=== PATIENT | male | born 1995 | race Caucasian/White ===

== ENCOUNTER 2017-10-07 20:49 | Emergency (ER) | payer MEDICAID ==
[~2017-10-07] VITALS: Ht 180.3 cm; Wt 117.9 kg
[2017-10-07 20:50] VITALS: BP_SYST 144
[2017-10-07] MEDS ORDERED: LORazepam 1 MG TABLET PO ONE (21:15)
[2017-10-07 22:55] VITALS: BP_SYST 136
== END 2017-10-07 22:55 | disposition home or self-care (01) ==
LOC: SED 20:49
DX: F41.9 Anxiety disorder, unspecified (principal)
CPT/HCPCS: 99283

== ENCOUNTER 2017-11-17 22:36 | Emergency (ER) | payer MEDICAID ==
[~2017-11-17] VITALS: Ht 185.4 cm; Wt 117.9 kg
[2017-11-17 22:36] VITALS: BP_SYST 164
[2017-11-18 00:25] VITALS: BP_SYST 156
== END 2017-11-18 00:25 | disposition home or self-care (01) ==
LOC: SED 22:36
DX: R07.89 Other chest pain (principal); R03.0 Elevated blood-pressure reading, without diagnosis of hypertension; F41.9 Anxiety disorder, unspecified
CPT/HCPCS: 71045; 93005; 99284

== ENCOUNTER 2022-03-05 21:46 | Emergency (ER) | payer MEDICAID ==
[~2022-03-05] VITALS: Ht 185.4 cm; Wt 126.1 kg
--- NOTE | 2022-03-05 22:58 | NUR ---
PATIENT TO ER BED 6 FOR EVALUATION.
--- NOTE | 2022-03-05 23:00 | NUR ---
MUSTAPHA FITZGERALD KWAW AT BEDSIDE EXAMINING PATIENT.
--- NOTE | 2022-03-05 23:00 | NUR ---
26 YR OLD AOX4 AMBULATORY MALE WITH COMPLAINT OF ARM NUMBNESS WITH TINGLING FOR A WEEK. PT REPORTS HAVING HX OF CHILDHOOD CA, WITH CARDIAC PROBLEMS. PT REPORTS FEELING HIS HANDS "GO TO SLEEP" REPEATEDLY. MD DASILVA AT THE BEDSIDE
[2022-03-05 23:13] VITALS: BP_SYST 157
[2022-03-06 00:19] LABS: BARBITURATE, URINE NEGATIVE (NEG <=200); BENZODIAZEPINE, URINE NEGATIVE (NEG <=150); CANNABINOID, URINE NEGATIVE (NEG <=50); COCAINE, URINE NEGATIVE (NEG <=150); METHAMPHETAMINES SCREEN,URINE NEGATIVE (NEG <=500); OPIATE, URINE NEGATIVE (NEG <=100); PHENCYCLIDINE SCREEN,URINE NEGATIVE (NEG <=25); UR TRICYCLIC ANTIDEPRESSANTS NEGATIVE (NEG <=300); URINE AMPHETAMINE NEGATIVE (NEG <=500); URINE METHADONE NEGATIVE (NEG <=200); URINE OXYCODONE SCREEN NEGATIVE (NEG <=100); URINE PROPOXYPHENE SCREEN NEGATIVE (NEG <=300)
--- NOTE | 2022-03-06 00:30 | NUR ---
PATIENT RESTING IN BED. NO SIGNS OF ACUTE DISTRESS NOTED AT THIS TIME. WILL CONTINUE TO MONITOR.
[2022-03-06 01:32] LABS: BASOPHILS # (AUTO) 0.1 K/uL (0.0-0.2); BASOPHILS % (AUTO) 0.8 % (0.0-2.0); EOSINOPHILS # (AUTO) 0.1 K/uL (0.0-0.4); EOSINOPHILS % (AUTO) 0.6 % (0.0-4.0); HEMATOCRIT 44.9 % (36-54); HEMOGLOBIN 15.4 g/dL (14.0-18.0); LYMPHOCYTES % (AUTO) 11.5 % (20.5-51.5); MEAN CORPUSCULAR HEMOGLOBIN 30 pg (27-31); MEAN CORPUSCULAR HGB CONC 34 % (32-36); MEAN CORPUSCULAR VOLUME 86 fL (79.0-98.0); MONOCYTES # (AUTO) 0.3 K/uL (0.0-1.0); MONOCYTES % (AUTO) 3.2 % (1.7-9.3); NEUTROPHILS # (AUTO) 7.6 K/uL (1.8-7.7); NEUTROPHILS % (AUTO) 83.9 % (40.0-70.0); PLATELET COUNT (AUTO) 267 K/uL (130-430); RED CELL DISTRIBUTION WIDTH 13.6 % (9.0-15.0)
[2022-03-06 02:16] LABS: CREATININE 1.01 mg/dL (0.55-1.30); POTASSIUM 3.5 mmol/L (3.5-5.1)
[2022-03-06 02:22] LABS: ALBUMIN 4.2 g/dL (3.4-4.8); TOTAL BILIRUBIN 0.2 mg/dL (0.0-1.0)
[2022-03-06 02:38] VITALS: BP_SYST 139
--- NOTE | 2022-03-06 02:38 | NUR ---
Patient given written and verbal discharge instructions and verbalizes understanding. ER MD DASILVA discussed with patient the results and treatment provided. Patient in stable condition. ID arm band removed. Patient educated on pain management and to follow up with PMD. Pain Scale 0/10. Opportunity for questions provided and answered. Medication side effect fact sheet provided.
== END 2022-03-06 02:38 | disposition home or self-care (01) ==
LOC: SED 21:46
DX: F41.9 Anxiety disorder, unspecified (principal); R20.2 Paresthesia of skin; R06.4 Hyperventilation; F41.1 Generalized anxiety disorder
CPT/HCPCS: 36415; 80053; 80307; 85025; 99283